=== PATIENT | female | born 1970 | race Caucasian/White ===

== ENCOUNTER 2019-09-10 01:25 | Emergency (ER) | payer MEDICAID, OTHER ==
[~2019-09-10] VITALS: Ht 165.1 cm; Wt 65.8 kg
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
[2019-09-10] MEDS ORDERED: SULFACETAMIDE SOD 10% OPHT DR 15 ML BOTTLE ONE (02:07)
[2019-09-10] MEDS ORDERED: SULFAMETH/TRIMETH 800/160 MG TABLET ONE (02:08)
[2019-09-10] MEDS ORDERED: SULFACETAMIDE SOD 10% OPHT DR 15 ML BOTTLE OP ONE (02:15)
[2019-09-10] MEDS ORDERED: SULFAMETH/TRIMETH 800/160 MG TABLET PO ONE (02:15)
[2019-09-10] MEDS ORDERED: DOXYCYCLINE HYCLATE 100 MG TABLET PO ONE (02:15)
[2019-09-10] MEDS ORDERED: CEFTRIAXONE 1 G VIAL IM ONE (02:15)
[2019-09-10] MEDS ORDERED: CEFTRIAXONE 1 G VIAL ONE (02:20)
[2019-09-10] MEDS ORDERED: METRONIDAZOLE 500 MG TABLET PO ONE (02:30)
[2019-09-10] MEDS ORDERED: METRONIDAZOLE 500 MG TABLET ONE (02:36)
[2019-09-10] MEDS ORDERED: METRONIDAZOLE 250 MG TABLET ONE (02:36)
--- NOTE | 2019-09-10 02:51 | NUR ---
Patient discharged to home in stable conditon. Written and verbal after care instructions given. Patient verbalizes understanding of instructions. AMBULATORY W/ STABLE ALL BELONGINGS W/ PT
[2019-09-10 02:59] VITALS: BP 115/94
== END 2019-09-10 03:00 | disposition home or self-care (01) ==
LOC: ER 01:32
DX: H10.9 Unspecified conjunctivitis (principal); B95.8 Unspecified staphylococcus as the cause of diseases classified elsewhere; N89.8 Other specified noninflammatory disorders of vagina; F32.9 Major depressive disorder, single episode, unspecified; F17.200 Nicotine dependence, unspecified, uncomplicated; F12.10 Cannabis abuse, uncomplicated; F15.10 Other stimulant abuse, uncomplicated; Z88.0 Allergy status to penicillin
CPT/HCPCS: 96372; 99283; J0696; A4663

== ENCOUNTER 2019-11-18 21:50 | Emergency (ER) | payer OTHER ==
[~2019-11-18] VITALS: Ht 165.1 cm; Wt 68.0 kg
--- NOTE | 2019-11-18 22:45 | NUR ---
Dr. Keen at bedside for MSE
[2019-11-18] MEDS ORDERED: KETOROLAC TROMETHAMINE 30 MG INJ ONE (22:52)
[2019-11-18] MEDS ORDERED: KETOROLAC TROMETHAMINE 30 MG INJ IM ONE (23:00)
--- NOTE | 2019-11-18 23:04 | NUR ---
Patient discharged to home in stable conditon. Written and verbal after care instructions given. Patient verbalizes understanding of instructions. Patient ambulating with steady gait
[2019-11-19 03:57] VITALS: BP 109/71
== END 2019-11-18 23:04 | disposition home or self-care (01) ==
LOC: ER 21:50
DX: H66.92 Otitis media, unspecified, left ear (principal); M06.9 Rheumatoid arthritis, unspecified; L53.8 Other specified erythematous conditions; Z88.0 Allergy status to penicillin
CPT/HCPCS: 96372; 99283; J1885; A4663

== ENCOUNTER 2020-06-11 21:37 | Emergency (ER) | payer OTHER ==
[~2020-06-11] VITALS: Ht 165.1 cm; Wt 70.3 kg
--- NOTE | 2020-06-11 21:58 | NUR ---
Patient in bed, awaiting ER MD evaluation. No acute distress noted. VSS
--- NOTE | 2020-06-11 22:53 | NUR ---
Patient discharged to home in stable condition. Written and verbal after care instructions given. Patient verbalizes understanding of instructions. Stressed follow up or return to ER for worsening s/s.
[2020-06-11 22:54] VITALS: BP 127/81
== END 2020-06-11 22:55 | disposition home or self-care (01) ==
LOC: ER 21:40
DX: B02.9 Zoster without complications (principal); Z88.0 Allergy status to penicillin
CPT/HCPCS: A4663

== ENCOUNTER 2021-11-01 15:34 | Emergency (ER) | payer OTHER ==
[~2021-11-01] VITALS: Ht 172.7 cm; Wt 68.0 kg
--- NOTE | 2021-11-01 16:35 | NUR ---
MD@bedside, medical screening exam in progress
[2021-11-01] MEDS ORDERED: DOXY-326 PO (16:50)
[2021-11-01] MEDS ORDERED: NAPR500T6 PO (16:50)
--- NOTE | 2021-11-01 17:23 | NUR ---
Patient was given written and verbal discharge instructions. Patient verbalized understanding and compliance of instructions. Patient was ambulatory with steady gait. Patient refused offer of correction placement. Patient was given a list of available shelters in surrounding area.
== END 2021-11-01 17:24 | disposition home or self-care (01) ==
LOC: ER 15:35
DX: L03.115 Cellulitis of right lower limb (principal); L03.116 Cellulitis of left lower limb; F17.210 Nicotine dependence, cigarettes, uncomplicated; Z88.0 Allergy status to penicillin; Z79.2 Long term (current) use of antibiotics; Z79.899 Other long term (current) drug therapy
CPT/HCPCS: A4663

== ENCOUNTER 2021-11-11 12:28 | Emergency (ER) | payer OTHER ==
[~2021-11-11] VITALS: Ht 165.1 cm; Wt 68.0 kg
[~2021-11-11 12:28] MED LIST: DOXY-326 PO; NAPR500T6 PO
[2021-11-11] MEDS ORDERED: ONDANSETRON 4 MG/2 ML VIAL IV ONE (12:45)
[2021-11-11] MEDS ORDERED: IV NORMAL SALINE 1000 ML BAG IV ONE (12:45)
[2021-11-11 12:58] LABS: HEMATOCRIT 44.7 % (31.2-41.9); MEAN CORPUSCULAR VOLUME 87.2 fL (75.5-95.3); PLATELET COUNT (AUTO) 261 K/uL (179-408)
[2021-11-11 12:59] LABS: *BILIRUBIN,URIN NEGATIVE (NEGATIVE); *BLOOD, URINE NEGATIVE (NEGATIVE); *CLARITY,URINE CLEAR (CLEAR); *COLOR,URINE YELLOW (YELLOW); *KETONES,URINE NEGATIVE (NEGATIVE); *UROBILINOGEN,URINE 0.2 E.U./dl (NORMAL); LEUKOCYTE ESTERASE ,URINE TRACE (NEGATIVE); NITRITE, URINE NEGATIVE (NEGATIVE); PH,URINE 6.5 (5.0-8.0); UGLUCOSE NEGATIVE (NEGATIVE)
[2021-11-11 13:09] LABS: *URINE HCG, QUAL NEG (NEGATIVE)
[2021-11-11] MEDS ORDERED: ONDANSETRON 4 MG/2 ML VIAL ONE (13:13)
[2021-11-11 13:15] LABS: CREATININE 0.9 mg/dL (0.6-1.3); POTASSIUM 4.4 mmol/L (3.5-5.1)
[2021-11-11 13:22] LABS: TOTAL PROTEIN, SERUM 7.2 g/dL (6.4-8.2)
[2021-11-11 14:33] LABS: RBC,URINE 0-3 /HPF (0-3)
[2021-11-11 14:34] LABS: BACTERIA,URINE NONE SEEN /HPF (NONE SEEN); SQUAMOUS EPITHELIAL CELL,UR FEW /HPF (NONE SEEN); WBC,URINE 0-3 /HPF (0-3)
[2021-11-11] MEDS ORDERED: FUROSEMIDE 20 MG/2 ML VIAL IV ONE (14:45)
[2021-11-11] MEDS ORDERED: FUROSEMIDE 20 MG/2 ML VIAL ONE (14:56)
--- NOTE | 2021-11-11 15:11 | NUR ---
Patient is resting comfortably in bed with eyes closed, NAD noted.
--- NOTE | 2021-11-11 15:18 | NUR ---
Dr Caba made aware of elevated diastolic BP.
--- NOTE | 2021-11-11 15:55 | NUR ---
placed a call to [facility] ambulance for a ALS tx, non avail for tonlaine. able to get ALS transfer for [address] [place] [phone].
--- NOTE | 2021-11-11 16:00 | NUR ---
Pt signed consent for tx. Accepting MD Mcdonald. Room 502, # for report [phone].
--- NOTE | 2021-11-11 17:53 | NUR ---
Report given to Ange MCHUGH at [facility].
--- NOTE | 2021-11-11 19:05 | NUR ---
RECEIVED REPORT FROM [facility]. PT NOTED TO BE IN BED, A/O X4, NO SOB OR LABORED BREATHING, AFEBRILE. DENIES CP/PRESSURE. DENIES ANY PAIN/DISCOMFORT AT THIS TIME.
--- NOTE | 2021-11-11 19:32 | NUR ---
PROVIDED PT WITH CARDIAC DIET, WELL TOLERATED.
--- NOTE | 2021-11-11 20:41 | NUR ---
SPOKE WITH JONN PROVIDED ETA OF 45-50 MINS.
--- NOTE | 2021-11-11 22:25 | NUR ---
[facility] [address] AT BEDSIDE TO TRANSPORT PT.
--- NOTE | 2021-11-11 22:29 | NUR ---
Patient Tranfers to outside Facility Physician: DR. BOTELLO Location: HOSPITAL ROOM 502
== END 2021-11-11 22:30 | disposition short-term general hospital (02) ==
LOC: ER 12:28
DX: I50.9 Heart failure, unspecified (principal); I51.7 Cardiomegaly; J81.1 Chronic pulmonary edema; Z88.0 Allergy status to penicillin; Z79.2 Long term (current) use of antibiotics; Z79.899 Other long term (current) drug therapy; Z20.822 Contact with and (suspected) exposure to COVID-19
CPT/HCPCS: 36415; 71045; 74176; 80053; 81001; 83690; 83880; 84484; 84703; 85025; 87086; 87426; 93005; 96361; 96374; 96375; 99285; J1940; J2405; 70030-TC; A4663; J7030

== ENCOUNTER 2024-06-14 15:45 | Emergency (ER) | payer OTHER ==
[~2024-06-14] VITALS: Ht 165.1 cm; Wt 64.4 kg
[2024-06-14] MEDS: IV NORMAL SALINE 1000 ML BAG IV ONE (16:45)
[2024-06-14 16:51] LABS: CALCIUM 7.7 mg/dL (8.5-10.1); CARBON DIOXIDE 29 mmol/L (21-32); CHLORIDE 100 mmol/L (98-107); GLUCOSE 106 mg/dL (74-106); POTASSIUM 3.7 mmol/L (3.5-5.1); SODIUM SERUM 134 mmol/L (136-145); UREA NITROGEN, BLOOD 21 mg/dL (7-18)
[2024-06-14 16:52] LABS: BASOPHILS % (AUTO) 0.6 % (0.0-2.0); EOSINOPHILS % (AUTO) 0.4 % (0.0-7.0); HEMATOCRIT 39.8 % (31.2-41.9); HEMOGLOBIN 13.3 g/dL (10.9-14.3); LYMPHOCYTES # (AUTO) 1.6 K/uL (0.8-4.8); LYMPHOCYTES % (AUTO) 49.7 % (20.5-51.5); MEAN CORPUSCULAR HEMOGLOBIN 30.4 uug (24.7-32.8); MEAN CORPUSCULAR HGB CONC 33 g/dL (32.3-35.6); MEAN CORPUSCULAR VOLUME 91.1 fL (75.5-95.3); MONOCYTES # (AUTO) 0.6 K/uL (0.1-1.30); MONOCYTES % (AUTO) 19.3 % (0.0-11.0); PLATELET COUNT (AUTO) 118 K/uL (179-408); RED BLOOD CELL COUNT(AUTO) 4.36 MIL/uL (3.63-4.92); RED CELL DISTRIBUTION WIDTH 13.2 % (12.3-17.7); WHITE BLOOD COUNT (AUTO) 3.2 K/uL (3.8-11.8)
[2024-06-14 16:58] LABS: ACETAMINOPHEN < 2.0 ug/mL (10-30)
[2024-06-14] MEDS: CEFTRIAXONE 2 G in IV DEXTROSE 5% 100 ML IV ONE (17:00)
[2024-06-14 17:01] LABS: ETHANOL < 3 MG/DL (0-10)
[2024-06-14 17:03] LABS: ALANINE AMINOTRANSFERASE 33 U/L (14-59); ALBUMIN 2.9 g/dL (3.4-5.0); ALKALINE PHOSPHATASE 75 U/L (50-136); ASPARTATE AMINOTRANSFERASE 50 U/L (15-37); BILIRUBIN,DIRECT 0.1 mg/dL (0.0-0.2); BILIRUBIN,TOTAL 0.3 mg/dL (0.2-1.0); NT-PRO BNP 1124 pg/mL (0-125); TOTAL PROTEIN, SERUM 6.5 g/dL (6.4-8.2)
[2024-06-14] MEDS ORDERED: IOHEXOL 350 100 ML INFUS..BTL ONE (17:43)
[2024-06-14] MEDS ORDERED: IV NORMAL SALINE 250 ML IV ONE (17:43)
[2024-06-14] MEDS ORDERED: SWABABLE VALVE TRANSFER SET EA MC ONE (17:43)
[2024-06-14] MEDS ORDERED: CEFTRIAXONE 1 G VIAL ONE (17:47)
[2024-06-14 18:05] LABS: *BILIRUBIN,URIN NEGATIVE (NEGATIVE); *BLOOD, URINE NEGATIVE (NEGATIVE); *CLARITY,URINE CLEAR (CLEAR); *COLOR,URINE YELLOW (YELLOW); *KETONES,URINE NEGATIVE (NEGATIVE); *PROTEIN,URINE NEGATIVE (NEGATIVE); *UROBILINOGEN,URINE 0.2 E.U./dl (NORMAL); LEUKOCYTE ESTERASE ,URINE NEGATIVE (NEGATIVE); NITRITE, URINE NEGATIVE (NEGATIVE); PH,URINE 5.5 (5.0-8.0); UGLUCOSE NEGATIVE (NEGATIVE)
[2024-06-14 18:17] LABS: *AMPHETAMINE, URINE POSITIVE (NEGATIVE); *BARBITURATE, URINE NEGATIVE (NEGATIVE); *BENZODIAZEPINE, URINE NEGATIVE (NEGATIVE); *CANNABINOID, URINE POSITIVE (NEGATIVE); *COCCAINE, URINE POSITIVE (NEGATIVE); *OPIATE, URINE NEGATIVE (NEGATIVE); *PHENCYCLIDINE SCREEN,URINE POSITIVE (NEGATIVE); FENTANYL, URINE NEGATIVE (NEGATIVE)
[2024-06-14 20:03] LABS: EOSINOPHILS % (MANUAL) 1 % (0-8); LYMPHOCYTES % (MANUAL) 48 % (20-40); MONOCYTES % (MANUAL) 18 % (2-10); NEUTROPHILS % (MANUAL) 33 % (42-75); PLATELET ESTIMATE DECREASED
[2024-06-14 20:04] LABS: ANISOCYTOSIS 1+
[2024-06-15] MEDS ORDERED: MORPHINE SULFATE 4 MG/1 ML DISP.SYRIN ONE (01:10)
[2024-06-15] MEDS: MORPHINE SULFATE 4 MG/1 ML DISP.SYRIN IV ONE (01:17)
[2024-06-15 04:34] VITALS: O2SAT 95
== END 2024-06-15 04:48 | disposition short-term general hospital (02) ==
LOC: ER 15:46
DX: G51.0 Bell's palsy (principal); R07.89 Other chest pain; R94.31 Abnormal electrocardiogram [ECG] [EKG]; R53.1 Weakness; F19.10 Other psychoactive substance abuse, uncomplicated; D72.819 Decreased white blood cell count, unspecified; F17.210 Nicotine dependence, cigarettes, uncomplicated; F32.A Depression, unspecified; Z20.822 Contact with and (suspected) exposure to COVID-19; Z98.890 Other specified postprocedural states; Z79.899 Other long term (current) drug therapy; Z88.0 Allergy status to penicillin
CPT/HCPCS: 80076; 80048; 81003; 83880; 85007; 85025; 85379; 85651; 85730; 87426; 87040 ×2; 84484 ×2; 36415; 71045; 71275; 93970; 93005; 99291; 96365; 96366; 83605; 80299; 80320; 80307; 99406; 96375; J0696 ×2; Q9967; J7040; J2270; 70030-TC; A4606; A4663; A6209; G0480